=== PATIENT | male | born 1990 | race African-American/Black ===

== ENCOUNTER 2017-01-28 18:48 | Emergency (ER) | payer OTHER ==
[~2017-01-28] VITALS: Ht 172.7 cm; Wt 68.0 kg
[~2017-01-28 18:48] MED LIST: ALBUAER INH; ONDA4TAB46 PO
[2017-01-28 19:03] VITALS: TEMP 36.9; Ht 172.7 cm; Wt 68.0 kg
[2017-01-28] MEDS ORDERED: TRAM-10 PO (19:33)
[2017-01-28] MEDS ORDERED: VENL37.593 PO (19:33)
[2017-01-28] MEDS ORDERED: LXP10 PO (19:33)
[2017-01-28] MEDS ORDERED: MTR800 PO (19:33)
[2017-01-28] MEDS ORDERED: OXYC1TAB3 PO (19:55)
[2017-01-28] MEDS ORDERED: PENI-82 PO (19:55)
--- NOTE | 2017-01-28 19:56 | EMERGENCY ROOM VISIT NOTE ---
ED Visit Note First contact with patient: 19:18 CHIEF COMPLAINT: Toothache HISTORY OF PRESENT ILLNESS: This 26-year-old male patient presented to the emergency department ambulatory with a progressive toothache for past to weeks. The patient states that he has a long history of dental problems. He has been seeing a dentist in [place] and has had extractions of some of his left upper and right upper molars as well as one of the right lower molars. The patient states he has had right upper and lower jaw pain for the past few weeks. He is having difficulty chewing on the right side. He called his dentist and they were initially not able to see him until June, but had a cancellation and remained appointment for the of this month. He states the pain is giving him a migraine. He rates his discomfort a 9/10. He denies facial swelling, drainage from the teeth, difficulty swallowing/breathing, neck pain or fever. REVIEW OF SYSTEMS: A 6 system review of systems was completed with positives and pertinent negatives listed in the HPI. ALLERGIES: Acetaminophen, shrimp MEDICATIONS: See med list PMH: Asthma, migraine headaches SOCIAL HISTORY: The patient lives locally with a roommate. Nonsmoker, denies alcohol use. PHYSICAL EXAM: Vitals are noted on the nurse's note and reviewed by myself. Vital signs stable. Temperature 36.9C orally. GENERAL: This is a 26-year-old male, in no acute distress, nondiaphoretic, well-developed well-nourished. Mouth: There are multiple dental caries, but no obvious swelling of the gums or abscess of the teeth. The remainder of the pharynx and tonsils are without erythema, edema, or exudate. The airway is patent. There is no facial swelling , cervical or submandibular lymphadenopathy. The patient appears uncomfortable and in pain. The patient has overall poor dental hygiene. EARS: External auditory canals clear, tympanic membranes pearly ren without erythema or effusion bilaterally. ED COURSE: The patient was evaluated as above. He has had issues with dental infections in the past. The patient does have an upcoming appointment with his dentist. I prescribed him penicillin as well as a very short course of pain medication. Conservative measures were discussed and the patient was instructed to return here for any worsening of his current condition or new/ concerning symptoms. Patient was reviewed in the [place] prescription drug monitoring program; no red flags were identied. Medication reconciliation: I attest that I have personally reviewed the patient 's current medication list. Blood Pressure Screening: Patient was found to have a slightly elevated blood pressure due to circumstances. I do not believe that the patient requires hypertension monitoring. DIAGNOSIS: Odontalgia Problem List Medical Problems: (1) Migraines Status: Chronic Current/Historical Medications Scheduled Escitalopram Oxalate (Escitalopram Oxalate), 10 MG PO DAILY Penicillin V Potassium (Veetids), 500 MG PO QID Venlafaxine Hcl (Venlafaxine Extended Rel), 37.5 MG PO DAILY Scheduled PRN Ibuprofen (Ibuprofen), 800 MG PO TID PRN for Pain Oxycodone Ir (Roxicodone Ir), 1 TAB PO Q4H PRN for Pain Tramadol (Ultram), 50 MG PO UD PRN for Pain Allergies Coded Allergies: Acetaminophen (Verified Allergy, Intermediate, GI SYMPTOMS, 12/15/15) Shrimp (Verified Allergy, Intermediate, GI SYMPTOMS, 12/15/15) Vital Signs Date Time Temp Pulse Resp B/P (MAP) Pulse Ox O2 Delivery O2 Flow Rate FiO2 01/28/17 19:03 36.9 95 18 104/61 98 Room Air Departure Information Impression Primary Impression: Tooth pain with chewing Dispostion Home / Self-Care Condition GOOD Prescriptions Oxycodone Ir (Roxicodone Ir) 5 Mg Tab 1 TAB PO Q4H Y for Pain, #8 TAB For Initial Treatment Prov: Roxanen Gillespie PA-C 01/28/17 Penicillin V Potassium (Veetids) 500 Mg Tab 500 MG PO QID, #40 TAB Prov: Roxanne Gillespie PA-C 01/28/17 Referrals No Doctor, Assigned (PCP) Patient Instructions My [facility] Additional Instructions You have been treated in the Emergency Department for Dental Pain. You have been prescribed Oxy IR to be used for pain control. This is a narcotic medication. You cannot drive or consume alcohol while on this medicine. This medicine should only be used for pain that cannot be controlled with over-the- counter pain medicines. You were prescribed Pen VK to be taken 4 times daily as prescribed. This is an antibiotic. All antibiotics have the potential to cause diarrhea. Stop this medication and contact a medical provider if you were to develop any significant adverse side effects including: wheezing, shortness of breath, passing out, vomiting, or a diffuse rash. Always take antibiotics as directed and COMPLETE the ENTIRE course regardless of the improvement of your symptoms. For pain control, you can use the following [id number] medicines (if >12 yo): - Regular strength (325mg/tab) Tylenol (acetaminophen) 2 tabs every 4-6 hours as needed. Do not exceed 12 tablets in a 24 hour period. Avoid taking more than 4 grams (4000 mg) of Tylenol per day. This includes any other sources of acetaminophen you may take on a regular basis. - Regular strength (200 mg/tab) Advil (ibuprofen) 1-2 tabs every 4-6 hours as needed. Do not exceed a dose of 3200 mg per day. Refrain from smoking cigarettes or using chewing tobacco until you have been evaluated by your dentist. Keeping beverages lukewarm and consuming soft foods can decrease your pain. Warm compresses over the affected area may offer some relief. You MUST seek evaluation of your dental pain by a dentist following your visit to the Emergency Department. The Emergency Department is not capable of treating dental issues long-term. You should call your dentist as soon as possible to make an appointment for evaluation of your dental pain. Return to the emergency department if you develop the following symptoms despite treatment course outlined above: fever, intractable pain, increased redness, swelling, or purulent discharge.
[2017-01-28 20:13] VITALS: BP 115/77; PULSE 87; O2SAT 98
[2017-04-06] MEDS ORDERED: AMOX500C3 PO (16:09)
[2017-04-06] MEDS ORDERED: TRAM-10 PO (16:11)
[2017-04-06] MEDS ORDERED: VNTHFA/IN PO (19:04)
[2017-04-06] MEDS ORDERED: MOME200A PO (19:04)
== END 2017-01-28 20:13 | disposition home or self-care (01) ==
LOC: C.EDB 18:49 → C.EDD 20:13
DX: K08.89 Other specified disorders of teeth and supporting structures (principal); K02.9 Dental caries, unspecified; J45.909 Unspecified asthma, uncomplicated; Z79.899 Other long term (current) drug therapy

== ENCOUNTER 2017-02-17 18:11 | Emergency (ER) | payer OTHER ==
[~2017-02-17] VITALS: Ht 172.7 cm; Wt 69.2 kg
[~2017-02-17 18:11] MED LIST changes: -ALBUAER INH; +LXP10 PO; +MTR800 PO; -ONDA4TAB46 PO; +OXYC1TAB3 PO; +PENI-82 PO; +TRAM-10 PO; +VENL37.593 PO
[2017-02-17 18:17] VITALS: Ht 172.7 cm; Wt 69.2 kg
[2017-02-17] MEDS ORDERED: DiphenhydrAMINE HCL 50 MG/ML VIAL IM STA (19:07)
[2017-02-17] MEDS ORDERED: PROCHLORPERAZINE 5 MG/ML 2 ML VIAL IM STA (19:07)
[2017-02-17] MEDS ORDERED: PENI-82 PO (19:07)
[2017-02-17] MEDS ORDERED: KETOROLAC TROMETHAMINE 60 MG/2 ML VIAL IM STA (19:07)
--- NOTE | 2017-02-17 19:14 | EMERGENCY ROOM VISIT NOTE ---
History Report prepared by Noelle: Susanne Brown Under the Supervision of: Dr. Justus Iglesias M.D. First contact with patient: 18:49 Chief Complaint: HEADACHE Stated Complaint: SEVERE MIGRANE AND TOOTH PAIN History of Present Illness The patient is a 26 year old male who presents to the Emergency Room with complaints of a constant migraine. The patient states he was given pain medicine yesterday that helped relieve some of his symptoms but has since ran out of medication and his symptoms have returned. He also states he has previously been seen by a neurologist in [place] and has seen a paint maker with the [facility]. The patient also states that after calling his PCP multiple times his PCP "told him to come to ER". He is also currently on antidepressants and is experiencing tooth pain and light sensitivity. Source of History: patient Onset: Just prior to arrival Position: head Quality: other (throbbing) Timing: constant Note: additional symptoms: tooth pain and light sensitivity Review of Systems See HPI for pertinent positives & negatives. A total of 10 systems reviewed and were otherwise negative. Past Medical & Surgical Medical Problems: (1) Anxiety Disorder, Unspecified (2) Asthma, Unspecified (3) Chronic Migraine W/O Aura, Not Intractable, W/O Stat Migr (4) Major Depressive Disorder, Single Episode, Unspecified (5) Migraines (6) Tobacco Use Disorder Surgical Problems: (1) History of dental surgery Family History No pertinent family history stated. Social History Smoking Status: Former Smoker Alcohol Use: occasionally Drug Use: none Marital Status: single Occupation Status: [employer] student Current/Historical Medications Scheduled Mometasone Furoate-Formoterol (Dulera 200/5 Mcg), 2 PUFFS PO BID Penicillin V Potassium (Veetids), 500 MG PO QID Venlafaxine Hcl (Effexor Extended Rel), 75 MG PO QAM Scheduled PRN Albuterol Hfa (Ventolin Hfa), 2 PUFFS PO Q6H PRN for Shortness of Breath Oxycodone Ir (Roxicodone Ir), 1 TAB PO Q4H PRN for Pain Allergies Coded Allergies: Acetaminophen (Verified Allergy, Intermediate, GI SYMPTOMS, 02/17/17) Shrimp (Verified Allergy, Intermediate, GI SYMPTOMS, 02/17/17) Physical Exam Vital Signs Date Time Temp Pulse Resp B/P (MAP) Pulse Ox O2 Delivery O2 Flow Rate FiO2 02/17/17 19:33 36.6 77 18 131/97 99 02/17/17 18:17 36.6 85 18 148/103 99 Room Air Physical Exam GENERAL: Patient is a healthy-appearing well-nourished male, no evidence of meningitis or encephalitis on exam HEAD: Normocephalic atraumatic EYES: Ocular movements intact pupils equal and react to light OROPHARYNX mucous membranes are moist no exudates present no erythema or edema present NECK: Supple no nuchal rigidity CHEST: Good equal expansion LUNGS: Clear and equal to auscultation CARDIAC: Normal S1 and S2 ABDOMEN: Soft nontender no guarding BACK: No CVA tenderness EXTREMITIES: No pain upon palpation normal muscle strength in all groups no clubbing cyanosis or edema NEURO: Patient is following commands is answering questions appropriately. Alert and oriented x3 Cranial Nerves 2-12 grossly intact Medical Decision & Procedures Medications Administered Medications (Trade) Dose Ordered Sig/Jelani Route Start Time Stop Time Status Last Admin Dose Admin Ketorolac Tromethamine (Toradol Inj) 60 mg NOW STAT IM 02/17/17 19:07 02/17/17 19:10 DC 02/17/17 19:07 60 MG ED Course 185: Past medical records reviewed. The patient was evaluated in room D9. A complete history and physical examination was performed. 190: Benadryl Inj 25 mg IM, Compazine Inj 10 mg IM, Toradol Inj 60 mg IM. Medical Decision This is a 26-year-old male who asked to see physician after seeing the PA. The patient has had multiple narcotic prescriptions prescribed to him therefore will not emergency department including 10 of oxycodone yesterday. He was given Toradol Compazine and Benadryl. I see no evidence of infection or abscess at his tooth he has no evidence of meningitis encephalitis on examination. He is given Toradol Compazine and Benadryl here in the emergency department. I do not feel comfortable prescribing narcotics for headaches and expresses to the patient. The patient will follow-up with dentistry as well as neurology. Impression Primary Impression: Pain, dental Scribe Attestation The scribe's documentation has been prepared under my direction and personally reviewed by me in its entirety. I confirm that the note above accurately reflects all work, treatment, procedures, and medical decision making performed by me. Departure Information Dispostion Home / Self-Care Prescriptions Penicillin V Potassium (Veetids) 500 Mg Tab 500 MG PO QID, #40 TAB Prov: Lazaro Galarza PA 02/17/17 Referrals Eddie Baker III, M.D. (PCP) Patient Instructions My [facility]
[2017-02-17 19:33] VITALS: BP 131/97; PULSE 77; TEMP 36.6; O2SAT 99
--- NOTE | 2017-02-17 19:39 | EMERGENCY ROOM VISIT NOTE ---
History First contact with patient: 18:22 Chief Complaint: HEADACHE Stated Complaint: SEVERE MIGRANE AND TOOTH PAIN History of Present Illness The patient is a 26 year old male who presents to the Emergency Room with complaints of right-sided dental pain, migraine and difficulty sleeping. The patient reports saying long-standing history of chronic migraines. He reports that he sees a [facility] neurologist for his migraines, and was referred to the [facility] where they recommended Botox injections. The patient reports that he would require multiple injections, and did not feel that Botox was the appropriate treatment for him. He was then referred back to his family doctor, who told the patient that if he has any migraine, he should come to the emergency department for further treatment. The patient also reports a history of chronic dental pain, and has had multiple extractions in the past. The patient reports that he had an appointment scheduled last month to see a dentist in [place], however he did not have a ride to his appointment, and was rescheduled for June. The patient reports that he cannot wait that long, and is having worsening dental pain. He denies any foul taste, drainage or difficulty swallowing. He has not noticed any facial swelling. The patient reports that he is under a lot of stress at this time, and has tried several different medications prescribed by his family doctor. He is most concerned now for his migraines and dental pain, rating his discomfort a 9 out of 10. Review of Systems 10 system review was performed and was negative except for pertinent positives and negatives as indicated in history of present illness Past Medical/Surgical History Medical Problems: (1) Anxiety Disorder, Unspecified (2) Asthma, Unspecified (3) Chronic Migraine W/O Aura, Not Intractable, W/O Stat Migr (4) Major Depressive Disorder, Single Episode, Unspecified (5) Migraines (6) Tobacco Use Disorder Surgical Problems: (1) History of dental surgery Family History FH: cancer FH: diabetes mellitus FH: heart disease FH: seizures Social History Smoking Status: Former Smoker Alcohol Use: occasionally Drug Use: none Marital Status: single Occupation Status: [employer] student Current/Historical Medications Scheduled Mometasone Furoate-Formoterol (Dulera 200/5 Mcg), 2 PUFFS PO BID Penicillin V Potassium (Veetids), 500 MG PO QID Venlafaxine Hcl (Effexor Extended Rel), 75 MG PO QAM Scheduled PRN Albuterol Hfa (Ventolin Hfa), 2 PUFFS PO Q6H PRN for Shortness of Breath Oxycodone Ir (Roxicodone Ir), 1 TAB PO Q4H PRN for Pain Physical Exam Vital Signs Date Time Temp Pulse Resp B/P (MAP) Pulse Ox O2 Delivery O2 Flow Rate FiO2 02/17/17 18:17 36.6 85 18 148/103 99 Room Air Physical Exam CONSTITUTIONAL: Healthy and well nourished. Alert and oriented X 3 with flat affect. HEENT: Normocephalic, atraumatic. Pupils equal, round and reactive. No facial edema noted. Patient is photophobic, precluding funduscopic exam. OROPHARYNX: Patient has poor dentition. There is no significant gingival erythema, fluctuance or pointing. No evidence for Rich's angina or retropharyngeal abscess. NECK: Full active range of motion without discomfort. No JVD, carotid bruits or nuchal rigidity. RESPIRATORY: Clear to auscultation bilaterally with no wheezing, crackles, rhonchi or stridor. CARDIOVASCULAR: Regular rate and rhythm with no murmurs, rubs or gallops. INTEGUMENTARY: No rash or other significant dermatologic conditions noted. NEUROLOGIC: Cranial nerves II-XII grossly intact. No focal neurologic deficits noted. No ataxia with ambulation. Negative pronator drift. Medical Decision & Procedures Medications Administered Medications (Trade) Dose Ordered Sig/Jelani Route Start Time Stop Time Status Last Admin Dose Admin Ketorolac Tromethamine (Toradol Inj) 60 mg NOW STAT IM 02/17/17 19:07 02/17/17 19:10 DC 02/17/17 19:07 60 MG ED Course Patient history and physical exam were performed. Nurse's notes were reviewed. Vital signs were reviewed and were normal. Before evaluating the patient, I did review his notes from the pain clinic, showing that the patient did refuse her tox injections. He also requested an opioid prescription, and both Cecily Gonzalez PA-C and Dr. Mares reported that they would not provide any opioid prescriptions. Review of the [place] Prescription Drug Monitoring Program also shows that the patient went when urgent care yesterday and received a prescription for [address] Rodríguez. The patient reports that he used up all of his medications without any relief, and is here for stopping stronger for his pain. I kindly explained to the patient that the emergency department does not provide chronic pain management. I would be happy to help him with a prescription antibiotic for his dental pain, but do not feel comfortable providing him prescription opioids given his opioid prescription history. It is noted that he has received 7 prescriptions from 5 different providers, filled at 6 different pharmacies over the past year. I did offer him a prescription for Fioricet for his migraines, but indicated that I would not provide any opioids. At this point, the patient became confrontational and wanted to speak with a physician. My attending physician, Dr. Iglesias, also evaluated the patient and recommended IM Toradol, Compazine and Benadryl, and no prescription opioids. The patient refused his IM Compazine and Benadryl, and was administered Toradol 60 mg IM. The patient was provided contact information for Dr. Fonseca who accepts medical assistance insurance. The patient was also provided a prescription for Pen-Vee K 500 mg 4 times a day 10 days. The patient was unhappy about not being prescribed opioids, and rated his pain a 7 out of 10 at the time of discharge. Medical Decision [place] Drug Monitoring Program Search Results: patient reviewed within database, see additional documentation Blood Pressure Screening Patient's blood pressure: Normal blood pressure Impression Primary Impression: Chronic migraine Additional Impression: Pain, dental Departure Information Dispostion Home / Self-Care Prescriptions Penicillin V Potassium (Veetids) 500 Mg Tab 500 MG PO QID, #40 TAB Prov: Lazaro Galarza PA 02/17/17 Referrals Eddie Baker III, M.D. (PCP) Forms HOME CARE DOCUMENTATION FORM, IMPORTANT VISIT INFORMATION Patient Instructions My [facility] Additional Instructions Complete Pen-Vee K antibiotics as prescribed. Follow-up with Dr. Fonseca, dentist, for further dental management. Ibuprofen 800 mg every 8 hours for additional headache and dental pain relief. You must follow-up with your neurologist, pain clinic or family doctor to discuss ongoing migraine management. The Emergency Department does not provide chronic pain management or dental services. You may try calling the [facility], another local pain management clinic for evaluation. Problem Qualifiers
[2017-04-06] MEDS ORDERED: AMOX500C3 PO (16:09)
[2017-04-06] MEDS ORDERED: TRAM-10 PO (16:11)
[2017-04-06] MEDS ORDERED: VNTHFA/IN PO (19:04)
[2017-04-06] MEDS ORDERED: MOME200A PO (19:04)
== END 2017-02-17 19:34 | disposition home or self-care (01) ==
LOC: C.EDB 18:13 → C.EDD 19:34
DX: G43.909 Migraine, unspecified, not intractable, without status migrainosus (principal); K08.89 Other specified disorders of teeth and supporting structures; F41.9 Anxiety disorder, unspecified; J45.909 Unspecified asthma, uncomplicated; F32.9 Major depressive disorder, single episode, unspecified; Z83.3 Family history of diabetes mellitus; Z82.0 Family history of epilepsy and other diseases of the nervous system; Z87.891 Personal history of nicotine dependence

== ENCOUNTER 2017-04-02 15:13 | Emergency (ER) | payer OTHER ==
[~2017-04-02] VITALS: Ht 172.7 cm; Wt 69.3 kg
[~2017-04-02 15:13] MED LIST changes: -LXP10 PO; -MTR800 PO; -TRAM-10 PO; -VENL37.593 PO
[2017-04-02 15:17] VITALS: TEMP 36.9; Ht 172.7 cm; Wt 69.3 kg
--- NOTE | 2017-04-02 16:03 | EMERGENCY ROOM VISIT NOTE ---
ED Visit Note First contact with patient: 15:41 CHIEF COMPLAINT: Toothache HISTORY OF PRESENT ILLNESS: This 26-year-old male patient presented to the emergency department with a progressive toothache for past month. The patient believes it is coming from left upper molar. The pain is now steady and severe and radiates to the face. The patient had a dentist appointment earlier today. He was referred to an oral surgeon. He was told to take ibuprofen, which he has been taking with minimal relief. He just finished a course of antibiotics last week REVIEW OF SYSTEMS: A 6 system review of systems was completed with positives and pertinent negatives listed in the HPI. ALLERGIES: Tylenol, shrimp MEDICATIONS: Reviewed PMH: Chronic migraines SOCIAL HISTORY: Smokes cigarettes, denies EtOH or illicit drug use. The patient is employed. PHYSICAL EXAM: Vitals are noted on the nurse's note and reviewed by myself. Vital signs stable. Temperature 36.9C orally. GENERAL: 26-year-old male, in no acute distress, nondiaphoretic, well-developed well-nourished. Mouth: The left upper molar is carious. No surrounding gum swelling or erythema noted. No signs of an abscess. The remainder of the pharynx and tonsils are without erythema, edema, or exudate. The airway is patent. There is no facial swelling , cervical or submandibular lymphadenopathy. The patient appears uncomfortable and in pain. The patient has overall fair dental hygiene. EARS: External auditory canals clear, tympanic membranes pearly ren without erythema or effusion bilaterally. ED COURSE: The patient was seen and examined. Discharge instructions were reviewed, and he was discharged in good condition DIAGNOSIS: Odontalgia DISCHARGE INSTRUCTIONS & TREATMENT: Please follow-up with the oral surgeon as soon as possible. I would recommend trying to contact your dentist in [place] to see if they can get you in sooner. Please try applying Orajel to the affected tooth. This may be purchased over- the-counter. Continue ibuprofen as prescribed Oxycodone Immediate Release (OxyIR) 5mg: Take 1-2 pills every four hours for pain. Avoid alcohol, operating machinery or dangerous equipment, working on ladders or roofs, DRIVING, or situations where being under the influence may be dangerous. It is recommended to use an [id number] stool softener such as Colace, 100mg twice daily while taking this medication to avoid constipation. Return to the emergency department if you have any of the following symptoms: -Fever of 103F or greater -Facial swelling -Difficulty breathing or swallowing This chart was completed in part utilizing [employer] Speech Voice Recognition software. Attempts were made to minimize the grammatical errors, random word insertions, pronoun errors and incomplete sentences. Any formal questions or concerns about the content, text or information contained within the body of this dictation should be directly addressed to the provider for clarification.
[2017-04-02] MEDS ORDERED: OXYC1TAB3 PO (16:05)
[2017-04-02 16:16] VITALS: BP 120/66; PULSE 86; O2SAT 96
[2017-04-02] MEDS ORDERED: EFFSR75 PO (19:04)
[2017-04-06] MEDS ORDERED: AMOX500C3 PO (16:09)
[2017-04-06] MEDS ORDERED: TRAM-10 PO (16:11)
[2017-04-06] MEDS ORDERED: VNTHFA/IN PO (19:04)
[2017-04-06] MEDS ORDERED: MOME200A PO (19:04)
== END 2017-04-02 16:18 | disposition home or self-care (01) ==
LOC: C.EDB 15:14 → C.EDD 16:18
DX: K08.89 Other specified disorders of teeth and supporting structures (principal); F17.210 Nicotine dependence, cigarettes, uncomplicated

== ENCOUNTER 2017-04-06 19:37 | Emergency (ER) | payer OTHER ==
[~2017-04-06] VITALS: Ht 172.7 cm; Wt 68.4 kg
[~2017-04-06 19:37] MED LIST changes: +AMOX500C3 PO; +EFFSR75 PO; +MOME200A PO; -PENI-82 PO; +TRAM-10 PO; +VNTHFA/IN PO
[2017-04-06 19:46] VITALS: TEMP 37.1; Ht 172.7 cm; Wt 68.4 kg
[2017-04-06] MEDS ORDERED: IBUP600T44 PO (20:43)
[2017-04-06] MEDS ORDERED: OXYCODONE IR HOME PACK PO STA (21:01)
[2017-04-06] MEDS ORDERED: OXYC1TAB3 PO (21:02)
--- NOTE | 2017-04-06 21:03 | EMERGENCY ROOM VISIT NOTE ---
ED Visit Note First contact with patient: 20:40 CHIEF COMPLAINT: "Extreme tooth pain both sides more left". HISTORY OF PRESENT ILLNESS: This 26-year-old male patient presented to the emergency department via private vehicle with a progressive toothache for past weeks. The patient believes it is coming from left top and bottom teeth. The pain is now steady and severe and radiates to the face. The patient has a dentist appointment set up April 15 with an oral surgeon, but comes to us today sent by his dentist that he saw around 6 PM this evening. They rate their pain a 9/10 and the ibuprofen and Tylenol they have been taking has not relieved the pain. He notes that he has been taking pain medication with some relief but no longer has these. He notes he has used them. Denies facial swelling or fever. The patient denies any discharge from the mouth. REVIEW OF SYSTEMS: A 6 system review of systems was completed with positives and pertinent negatives listed in the HPI. ALLERGIES: Acetaminophen, shrimp. MEDICATIONS: As noted below. PMH: Dental pain. SOCIAL HISTORY: Patient lives locally. PHYSICAL EXAM: Vitals are noted on the nurse's note and reviewed by myself. Vital signs stable. Temperature 37.1C orally. GENERAL: 26-year-old male, in no acute distress, nondiaphoretic, well-developed well-nourished. Mouth: The top right and bottom right tooth in poor repair and the gum is swollen and tender around it, without any discharge or signs of an abscess. The remainder of the pharynx and tonsils are without erythema, edema, or exudate. The airway is patent. There is no facial swelling, cervical or submandibular lymphadenopathy. The patient appears uncomfortable and in pain. The patient has overall fair dental hygiene. EARS: External auditory canals clear, tympanic membranes pearly ren without erythema or effusion bilaterally. ED COURSE: Patient was seen and evaluated as above. He has been here numerous times for dental pain. He furnishes paperwork regarding referral that he has to an oral maxillofacial surgeon April 15 in [place]. He notes that he has been told here on the past and we are unable to manage his dental pain, which I reiterated. He notes that he is not sure ago, because his family doctor notes that her unable to write for extended prescriptions, and his dentist that he saw today said the same thing, that their policy is only to prescribe antibiotics and pain meds. He notes that the dentist then sent him here. He does finished documentation of such. [employer] was checked. The patient has been very honest with me about his previous prescription, as well as being to see the dentist. I do believe that he is in pain, therefore we'll provide him a short course of pain medication, but reminded him that recurrent visits to the emergency Department for dental pain is not appropriate. At this time he appears stable for outpatient management, will be given a home pack as well as a short prescription. His pharmacy is closed at this time. He is to not drive or operate machinery with this in his system. He was educated upon management, educated upon worrisome symptoms in which to return, had questions answered prior to discharge, and was discharged home in good condition. In the evaluation and treatment of this patient, the following differential diagnoses were considered: Periapical Abscess, Osteonecrosis of the Jaw, Dental Fracture, Dental Caries, Rich's Angina, Vincent's Angina, Facial Cellulitis. In the treatment of this patient controlled medication was utilized and therefore the [facility], Prescription Drug Monitoring Program website was utilized to look up this patient. No concerns were identified that would prohibit or alter my treatment decision.. Problem List Medical Problems: (1) Migraines Status: Chronic Current/Historical Medications Scheduled Amoxicillin (Amoxil), 500 MG PO TID Mometasone Furoate-Formoterol (Dulera 200/5 Mcg), 2 PUFFS PO BID Venlafaxine Hcl (Effexor Extended Rel), 75 MG PO QAM Scheduled PRN Albuterol Hfa (Ventolin Hfa), 2 PUFFS PO Q6H PRN for Shortness of Breath Ibuprofen (Motrin), 600 MG PO TID PRN for Pain Oxycodone Ir (Roxicodone Ir), 1-2 TAB PO Q4H PRN for Pain Oxycodone Ir (Roxicodone Ir), 1-2 TAB PO Q4H PRN for Pain Tramadol (Ultram), 50 MG PO PRN UD PRN for Pain Allergies Coded Allergies: Acetaminophen (Verified Allergy, Intermediate, GI SYMPTOMS, 02/17/17) Shrimp (Verified Allergy, Intermediate, GI SYMPTOMS, 02/17/17) Vital Signs Date Time Temp Pulse Resp B/P (MAP) Pulse Ox O2 Delivery O2 Flow Rate FiO2 04/06/17 21:19 83 20 147/107 100 04/06/17 19:46 37.1 105 18 150/90 99 Room Air Medications Administered Medications (Trade) Dose Ordered Sig/Jelani Route Start Time Stop Time Status Last Admin Dose Admin Oxycodone HCl (Roxicodone Immediate Rel 5MG Home Pack) 1 homepack UD STAT PO 04/06/17 21:01 04/06/17 21:02 DC 04/06/17 21:18 1 HOMEPACK Departure Information Impression Primary Impression: Odontalgia Dispostion Home / Self-Care Condition GOOD Prescriptions Oxycodone Ir (Roxicodone Ir) 5 Mg Tab 1-2 TAB PO Q4H Y for Pain, #18 TAB For Initial Treatment Prov: Jameson Lawson PA-C 04/06/17 Referrals Eddie Baker III, M.D. (PCP) Patient Instructions My [facility] Additional Instructions You have been treated in the Emergency Department for Dental Pain. You have received pain medicine in the emergency department which impairs your ability to operate a vehicle. It is illegal for you to drive after receiving these medicines. You have been prescribed Oxy IR to be used for pain control. This is a narcotic medication. You cannot drive or consume alcohol while on this medicine. This medicine should only be used for pain that cannot be controlled with over-the- counter pain medicines. The care will take this only as you absolutely need, as this can interact with your other medications. For pain control, you can use the following unwh-mle-bldloqj medicines (if >12 yo): - Regular strength (325mg/tab) Tylenol (acetaminophen) 2 tabs every 4-6 hours as needed. Do not exceed 12 tablets in a 24 hour period. Avoid taking more than 3 grams (3000 mg) of Tylenol per day. This includes any other sources of acetaminophen you may take on a regular basis. - Regular strength (200 mg/tab) Advil (ibuprofen) 1-2 tabs every 4-6 hours as needed. Do not exceed a dose of 3200 mg per day. Refrain from smoking cigarettes or using chewing tobacco until you have been evaluated by your dentist. Keeping beverages lukewarm and consuming soft foods can decrease your pain. Warm compresses over the affected area may offer some relief. You MUST seek evaluation of your dental pain by a dentist following your visit to the Emergency Department. The Emergency Department is not capable of treating dental issues long-term. You should call your dentist as soon as possible to make an appointment for evaluation of your dental pain. Return to the emergency department if you develop the following symptoms despite treatment course outlined above: fever, intractable pain, increased redness, swelling, or purulent discharge. Please return with any new/concerning symptoms.
[2017-04-06 21:19] VITALS: BP 147/107; PULSE 83; O2SAT 100
== END 2017-04-06 21:20 | disposition home or self-care (01) ==
LOC: C.EDB 19:38 → C.EDD 21:20
DX: K08.89 Other specified disorders of teeth and supporting structures (principal); G43.909 Migraine, unspecified, not intractable, without status migrainosus

== ENCOUNTER 2017-04-12 16:18 | Emergency (ER) | payer OTHER ==
[~2017-04-12] VITALS: Ht 172.7 cm; Wt 69.8 kg
[~2017-04-12 16:18] MED LIST changes: +IBUP600T44 PO
[2017-04-12 16:26] VITALS: TEMP 36.4; Ht 172.7 cm; Wt 69.8 kg
[2017-04-12] MEDS ORDERED: ALPR-411 PO (16:43)
[2017-04-12] MEDS ORDERED: TRAZ50TA35 PO (16:43)
[2017-04-12] MEDS ORDERED: CYM30 PO (16:43)
[2017-04-12] MEDS ORDERED: AMOX500C3 PO (17:12)
[2017-04-12] MEDS ORDERED: OXYC1TAB3 PO (17:12)
--- NOTE | 2017-04-12 17:14 | EMERGENCY ROOM VISIT NOTE ---
ED Visit Note First contact with patient: 16:39 CHIEF COMPLAINT: Ongoing dental pain times several months HISTORY OF PRESENT ILLNESS: Patient is a 26-year-old -[place] male who returns to the emergency department for the third visit in 10 days for evaluation of dental pain. He reports that he has been seen by [facility] and has been referred to Drs. Reardon/Carrillo in [place] for extraction of teeth #13 and 19. He has paperwork from the [facility] documenting the referral. His appointment with the oral surgeon is April 15. Patient recently finished a course of amoxicillin. His dentist has a strict no narcotic prescription policy. He has called his PCP, Dr. Baker and they are also unable/unwilling to provide him with pain management. He has received 2 oxycodone prescriptions in the last week and a half from the emergency department. He is here as he is out of pain medication, and is requesting additional pain medication until he can see the oral surgeon in a few days. He is using pkji-nxb-lmzvzhg medications including Aleve and Tylenol. He denies any drainage or discharge. He states that his dental pain is causing a migraine. He rates his pain a 10/10. REVIEW OF SYSTEMS: Review of systems as per HPI. All other systems reviewed were negative. At least 6 systems reviewed. PMH: Electronic medical records are reviewed and summarized as above/below. See Problem List. SOCIAL HISTORY: Patient lives at home. Smoker. PHYSICAL EXAM: Vital Signs: Reviewed Nurse's notes. CONSTITUTIONAL: Patient is a well-appearing 26-year-old -[place] male who is awake and alert and in no acute distress. Vital signs are stable. EARS: Tympanic membranes intact, not inflamed, have normal contour. External canals clear. MOUTH: Overall the patient has fair dentition. He is status post multiple extractions, he does have some fillings in place. There is slight swelling along the gumline although no focal abscess. Mucous membranes moist, no lesions , tongue and gums appear normal. THROAT: No pharyngeal injection, exudates, or tonsillar hypertrophy. Airway is patent. No trismus noted. FACE: No facial swelling is appreciated. No cellulitic changes. NECK: No lymphadenopathy. ED course: The patient was seen and examined as above. His old records are reviewed. Patient was reviewed in the [facility] Prescription Drug Monitoring Program. Patient is forthcoming with regards to the prescriptions that he has obtained, including from other facilities. He has had 5 oxycodone prescriptions since the beginning of February, small supplies , since he has begun the process of his extensive dental work. The patient has been previously told and he was reminded that the emergency department cannot provide him with narcotics for his chronic dental pain related complaints. He expressed understanding of this. As he has an appointment this week, I have provided him with THE LAST OxyIR prescription. He was advised that he would not get any further narcotics from the emergency department regarding his dental pain. He was encouraged to follow-up with his oral surgeon as he has scheduled. The patient does not have any evidence for infection at this time, no evidence for facial cellulitis or Rich's angina. No evidence for airway compromise. Patient was reviewed in the [facility] Prescription Drug Monitoring Program, and there were no red flags noted. Medication reconciliation: I attest that I have personally reviewed the patient' s current medication list. Blood pressure screening: Patient was found to have a slightly elevated blood pressure due to circumstances. I do not believe that the patient requires hypertension monitoring. Problem List Medical Problems: (1) Migraines Status: Chronic Current/Historical Medications Scheduled Amoxicillin (Amoxil), 500 MG PO TID Duloxetine HCl (Duloxetine HCl), 60 MG PO DAILY Scheduled PRN Albuterol Hfa (Ventolin Hfa), 2 PUFFS PO Q6H PRN for Shortness of Breath Alprazolam (Alprazolam), 0.5 MG PO TID PRN for Anxiety Ibuprofen (Motrin), 600 MG PO TID PRN for Pain Oxycodone Ir (Roxicodone Ir), 1-2 TAB PO Q4H PRN for Pain Tramadol (Ultram), 50 MG PO PRN UD PRN for Pain Trazodone Hcl (Trazodone), 50 MG PO HS PRN for Sleep Allergies Coded Allergies: Acetaminophen (Verified Allergy, Intermediate, GI SYMPTOMS, 04/12/17) Shrimp (Verified Allergy, Intermediate, GI SYMPTOMS, 04/12/17) Vital Signs Date Time Temp Pulse Resp B/P (MAP) Pulse Ox O2 Delivery O2 Flow Rate FiO2 04/12/17 17:26 94 18 137/93 100 04/12/17 16:26 36.4 99 18 152/100 100 Room Air Departure Information Impression Primary Impression: Pain, dental Prescriptions Amoxicillin (AMOXIL) 500 Mg Cap 500 MG PO TID, #30 CAP Prov: Lyndsay Dinh PA 04/12/17 Oxycodone Ir (Roxicodone Ir) 5 Mg Tab 1-2 TAB PO Q4H Y for Pain, #18 TAB For Initial Treatment Prov: Lyndsay Dinh PA 04/12/17 Referrals Eddie Baker III, M.D. (PCP) Patient Instructions My [facility] Additional Instructions Oxy IR as prescribed. Avoid alcohol, operating machinery or dangerous equipment , working on ladders or roofs, DRIVING, making important decisions, or situations where being under the influence may be dangerous. It is recommended to use an xdae-zcb-stizaoq stool softener such as Colace, 100mg twice daily while taking this medication to avoid constipation. Ibuprofen(Motrin, Advil) may be used for fever or pain. Use 600mg every six hours as needed. Take with food. Avoid using more than 2400mg in a 24 hour period. Do not use 2400mg per day for more than three consecutive days without physician direction. Prolonged inappropriate use can lead to stomach upset or ulcers. This is available over the counter and typically comes in 200mg tablets. (AND/OR) Acetaminophen(Tylenol) may be used for fever or pain. Use 1000mg every eight hours as needed. Avoid using more than 3000mg in a 24 hour period. This is available over the counter. Take Amoxil if you find you are developing signs of infection. Follow up with the oral surgeon as scheduled. The Emergency Department will no longer provide you with narcotic prescriptions for your dental pain.
[2017-04-12 17:26] VITALS: BP 137/93; PULSE 94; O2SAT 100
== END 2017-04-12 17:28 | disposition home or self-care (01) ==
LOC: C.EDB 16:19 → C.EDD 17:28
DX: K08.89 Other specified disorders of teeth and supporting structures (principal); F17.200 Nicotine dependence, unspecified, uncomplicated; Z88.6 Allergy status to analgesic agent; Z91.018 Allergy to other foods

== ENCOUNTER 2017-04-23 16:55 | Emergency (ER) | payer OTHER ==
[~2017-04-23] VITALS: Ht 172.7 cm; Wt 68.8 kg
[~2017-04-23 16:55] MED LIST changes: +ALPR-411 PO; +CYM30 PO; -EFFSR75 PO; -MOME200A PO; +TRAZ50TA35 PO
[2017-04-23 17:07] VITALS: TEMP 37; Ht 172.7 cm; Wt 68.8 kg
--- NOTE | 2017-04-23 17:46 | EMERGENCY ROOM VISIT NOTE ---
ED Visit Note First contact with patient: 17:12 CHIEF COMPLAINT: "Dental Pain" HISTORY OF PRESENT ILLNESS: This 26 year old male appearing his stated patient presented to the emergency department via private vehicle with a progressive toothache for past few weeks.. The patient believes it is coming from all of his teeth. The pain is now steady and severe and radiates to the face. The patient has a dentist appointment set up for the , and notes that although he had an appointment on the he missed the appointment which was excellent the third. They rate their pain a 8/10 and the ibuprofen they have been taking has not relieved the pain. Denies facial swelling or fever. The patient denies any discharge from the mouth. REVIEW OF SYSTEMS: A 6 system review of systems was completed with positives and pertinent negatives listed in the HPI. ALLERGIES: Acetaminophen, shrimp MEDICATIONS: As noted below PMH: Dental pain SOCIAL HISTORY: Patient lives locally PHYSICAL EXAM: Vitals are noted on the nurse's note and reviewed by myself. Vital signs stable. Temperature 37C orally. GENERAL: 26-year-old male, in no acute distress, nondiaphoretic, well-developed well-nourished. Mouth: The dentition is in good repair. The airway is patent. There is no facial swelling , cervical or submandibular lymphadenopathy. The patient appears uncomfortable and in pain. The patient has overall fair dental hygiene. EARS: External auditory canals clear, tympanic membranes pearly ren without erythema or effusion bilaterally. ED COURSE: Patient was seen and evaluated as above. [facility] many drug monitoring system was reviewed as well as his previous visits. I have seen him here on previous visits for the same complaint, as well as other colleagues. I' m concerned because he continues to return for narcotic medication. I informed him that a colleague, on a previous visit indicated that that was the last narcotic prescription for his dental pain. He has been seen here over 10 times in the past 2-1/2 years for dental pain. When I asked him about the oral surgeon appointment he had for April 15, he indicated that he called that day to see if he still had that appointment, and indicated he missed that day as it was the third instead. I do find this on, but he does note he has an appointment on the . He states his local dentist here did some manipulation in the mouth today but he states they have a no narcotic no antibiotic policy. At this time I offered him every modality possible other than narcotic medications, even had me as the attending physician if there was any exclusions or special circumstance changes we could make for him. I spoke with Dr. Chaney, and the decision was still no. He at this time appears stable for outpatient management. No evidence of meningitis, encephalitis, fever or other emergent process. He was educated upon management, educated upon worrisome symptoms which to return, had questions answered prior to discharge, and was discharged home in good condition. In the evaluation and treatment of this patient, the following differential diagnoses were considered: Periapical Abscess, Osteonecrosis of the Jaw, Dental Fracture, Dental Caries, Rich's Angina, Vincent's Angina, Facial Cellulitis. Problem List Medical Problems: (1) Migraines Status: Chronic Current/Historical Medications Scheduled Amoxicillin (Amoxil), 500 MG PO TID Duloxetine HCl (Duloxetine HCl), 60 MG PO DAILY Scheduled PRN Albuterol Hfa (Ventolin Hfa), 2 PUFFS PO Q6H PRN for Shortness of Breath Alprazolam (Alprazolam), 0.5 MG PO TID PRN for Anxiety Ibuprofen (Motrin), 600 MG PO TID PRN for Pain Oxycodone Ir (Roxicodone Ir), 1-2 TAB PO Q4H PRN for Pain Tramadol (Ultram), 50 MG PO PRN UD PRN for Pain Trazodone Hcl (Trazodone), 50 MG PO HS PRN for Sleep Allergies Coded Allergies: Acetaminophen (Verified Allergy, Intermediate, GI SYMPTOMS, 04/12/17) Shrimp (Verified Allergy, Intermediate, GI SYMPTOMS, 04/12/17) Vital Signs Date Time Temp Pulse Resp B/P (MAP) Pulse Ox O2 Delivery O2 Flow Rate FiO2 04/23/17 18:08 72 20 125/89 99 04/23/17 17:07 37.0 92 20 133/105 99 Room Air Departure Information Impression Primary Impression: Odontalgia Dispostion Home / Self-Care Condition GOOD Referrals No Doctor, Assigned (PCP) Patient Instructions My [facility] Additional Instructions You have been treated in the Emergency Department for Dental Pain. For pain control, you can use the following ynvr-sjv-avgsuxv medicine: - Regular strength (200 mg/tab) Advil (ibuprofen) 1-2 tabs every 4-6 hours as needed. Do not exceed a dose of 3200 mg per day. Refrain from smoking cigarettes or using chewing tobacco until you have been evaluated by your dentist. Keeping beverages lukewarm and consuming soft foods can decrease your pain. Warm compresses over the affected area may offer some relief. You MUST seek evaluation of your dental pain by a dentist following your visit to the Emergency Department. The Emergency Department is not capable of treating dental issues long-term. You should call your dentist as soon as possible to make an appointment for evaluation of your dental pain. Return to the emergency department if you develop the following symptoms despite treatment course outlined above: fever, intractable pain, increased redness, swelling, or purulent discharge.
[2017-04-23 18:08] VITALS: BP 125/89; PULSE 72; O2SAT 99
== END 2017-04-23 18:01 | disposition home or self-care (01) ==
LOC: C.EDB 16:56 → C.EDD 18:01
DX: K08.89 Other specified disorders of teeth and supporting structures (principal)

== ENCOUNTER 2017-06-19 17:51 | Emergency (ER) | payer OTHER ==
[~2017-06-19] VITALS: Ht 172.7 cm; Wt 69.8 kg
[~2017-06-19 17:51] MED LIST changes: -AMOX500C3 PO; -OXYC1TAB3 PO
[2017-06-19 18:08] VITALS: TEMP 36.9; Ht 172.7 cm; Wt 69.8 kg
--- NOTE | 2017-06-19 19:14 | EMERGENCY ROOM VISIT NOTE ---
ED Visit Note First contact with patient: 18:18 CHIEF COMPLAINT: "Severe tooth pain". HISTORY OF PRESENT ILLNESS: This 27-year-old male patient presented to the emergency department via private vehicle with a progressive toothache for past 3 -4 days of the superior posterior molars on the right side. The pain is now steady and severe and radiates to the face. The patient has a dentist appointment set up July [address] Nato DDS. They rate their pain a 8/ 10 and the ibuprofen, tramadol, naproxen they have been taking has not relieved the pain. Denies facial swelling or fever. The patient denies any discharge from the mouth. REVIEW OF SYSTEMS: A 6 system review of systems was completed with positives and pertinent negatives listed in the HPI. ALLERGIES: Acetaminophen and shrimp MEDICATIONS: As noted below PMH: Dental pain SOCIAL HISTORY: Pt. lives locally PHYSICAL EXAM: Vitals are noted on the nurse's note and reviewed by myself. Vital signs stable. Temperature 36.9C orally. GENERAL: 27 year old male, in no acute distress, nondiaphoretic, well-developed well-nourished. Mouth: The dentition is in goo repair, without any discharge or signs of an abscess. The remainder of the pharynx and tonsils are without erythema, edema, or exudate. The airway is patent. There is no facial swelling, cervical or submandibular lymphadenopathy. The patient appears uncomfortable and in pain. The patient has overall fair dental hygiene. EARS: External auditory canals clear, tympanic membranes pearly ren without erythema or effusion bilaterally. ED COURSE: Patient was seen and evaluated as above. He presents to us today with dental pain. I am fully aware of the patient and previous visits. He has been here 13 times in the past year and a half for dental pain. He requested I speak with his dentist/on-call dentist. At 6:46 PM I did speak with Dr. Jaja Kelly DMD. We discussed the concern with the patient's drug-seeking behavior, and they indicated they do not feel comfortable prescribing narcotics until they would see the patient. They're also concerned about potential drug- seeking behavior. She recommended potential dental block, and then follow up with their office. He is to call Thursday morning to schedule follow-up. This does appear reasonable. The patient was offered this as well as Toradol, and essentially every other pain alleviating option other than narcotics. He stated to me in regard to Toradol, and ibuprofen "not going to touch the pain". The patient does talk in length, and does not appear to be experiencing much pain. I informed him that's a decision was made given the frequent visits to the emergency Department for dental pain requesting narcotics that he has on the no narcotic list. After thorough discussion with him, he requested to be discharged. He was respectful with this, and was discharged home. He is to follow with dentistry. In the evaluation and treatment of this patient, the following differential diagnoses were considered: Periapical Abscess, Osteonecrosis of the Jaw, Dental Fracture, Dental Caries, Rich's Angina, Vincent's Angina, Facial Cellulitis. Problem List Medical Problems: (1) Migraines Status: Chronic Current/Historical Medications Scheduled Duloxetine HCl (Duloxetine HCl), 60 MG PO DAILY Scheduled PRN Albuterol Hfa (Ventolin Hfa), 2 PUFFS PO Q6H PRN for Shortness of Breath Alprazolam (Alprazolam), 0.5 MG PO TID PRN for Anxiety Ibuprofen (Motrin), 600 MG PO TID PRN for Pain Tramadol (Ultram), 50 MG PO PRN UD PRN for Pain Trazodone Hcl (Trazodone), 50 MG PO HS PRN for Sleep Allergies Coded Allergies: Acetaminophen (Verified Allergy, Intermediate, GI SYMPTOMS, 05/09/17) Shrimp (Verified Allergy, Intermediate, GI SYMPTOMS, 05/09/17) Vital Signs Date Time Temp Pulse Resp B/P (MAP) Pulse Ox O2 Delivery O2 Flow Rate FiO2 06/19/17 19:32 72 18 132/89 97 06/19/17 18:08 36.9 92 18 156/100 98 Room Air Departure Information Impression Primary Impression: Dental caries Dispostion Home / Self-Care Condition GOOD Referrals No Doctor, Assigned (PCP) Patient Instructions My [facility] Additional Instructions You have been treated in the Emergency Department for Dental Pain. - Regular strength (200 mg/tab) Advil (ibuprofen) 1-2 tabs every 4-6 hours as needed. Do not exceed a dose of 3200 mg per day. Refrain from smoking cigarettes or using chewing tobacco until you have been evaluated by your dentist. Keeping beverages lukewarm and consuming soft foods can decrease your pain. Warm compresses over the affected area may offer some relief. You MUST seek evaluation of your dental pain by a dentist following your visit to the Emergency Department. The Emergency Department is not capable of treating dental issues long-term. You should call your dentist as soon as possible to make an appointment for evaluation of your dental pain. Return to the emergency department if you develop the following symptoms despite treatment course outlined above: fever, intractable pain, increased redness, swelling, or purulent discharge.
[2017-06-19 19:32] VITALS: BP 132/89; PULSE 72; O2SAT 97
== END 2017-06-19 19:33 | disposition home or self-care (01) ==
LOC: C.EDB 17:52 → C.EDD 19:33
DX: K02.9 Dental caries, unspecified (principal); G43.909 Migraine, unspecified, not intractable, without status migrainosus; Z79.899 Other long term (current) drug therapy

== ENCOUNTER 2017-07-29 22:19 | Emergency (ER) | payer OTHER ==
[~2017-07-29] VITALS: Ht 172.7 cm; Wt 73.0 kg
[2017-07-29 22:28] VITALS: TEMP 36.5; Ht 172.7 cm; Wt 73.0 kg
[2017-07-29] MEDS ORDERED: TRAZ100T29 PO (23:21)
[2017-07-29] MEDS ORDERED: VRPSR180 PO (23:21)
[2017-07-29] MEDS ORDERED: DIHY1SPR NAE (23:23)
[2017-07-29] MEDS ORDERED: MOME200A PO (23:23)
[2017-07-29] MEDS ORDERED: ALPR-385 PO (23:23)
[2017-07-29] MEDS ORDERED: MELO15TA4 PO (23:27)
[2017-07-29] MEDS ORDERED: ZOLP10TA6 PO (23:27)
[2017-07-29] MEDS ORDERED: INDSR/60 PO (23:28)
[2017-07-30 00:12] VITALS: BP 117/69; PULSE 91; O2SAT 97
--- NOTE | 2017-07-30 00:38 | EMERGENCY ROOM VISIT NOTE ---
History First contact with patient: 22:34 Chief Complaint: DENTAL PAIN Stated Complaint: HEAD PAIN, TOOTH PAIN Nursing Triage Summary: Dental pain times four days 10/10 on left side. Patient states he has been seen numerous times in ED. Patient with slurred speech. History of Present Illness The patient is a 27 year old male who presents to the Emergency Room with complaints of migraine headaches and dental pain. The patient states that he has a history of migraine headaches and has had migraines frequently for the past 15 years. He reports that he has daily headaches. He states that over the past few weeks, he has had daily migraines and states these are different from previous migraines. The pain is located throughout his head. There are not the worst headaches of his life. He states that typically, if he goes to sleep this migraine goes away. He is concerned because he has been going to sleep and his migraines improved, but does not completely go away. The patient also reports that he is here because he has dental pain. He has been seen by a dentist multiple times and has had several extractions and root canals. He was told that he needs another root canal on one of his front lower teeth. He has difficulty chewing and sensitivity of the teeth. He is taking ibuprofen and occasionally taking oxycodone for pain. The patient also reports that he has been seeing his primary care provider for all of these issues, but is no longer seeing them because he did not feel they were helping him. He has been seeing a dentist about his dental pain. Review of Systems A complete 10 point review of systems was reviewed with the patient with pertinent positives and negatives as per history of present illness. All else were negative. Past Medical/Surgical History Medical Problems: (1) Anxiety Disorder, Unspecified (2) Asthma, Unspecified (3) Chronic Migraine W/O Aura, Not Intractable, W/O Stat Migr (4) Major Depressive Disorder, Single Episode, Unspecified (5) Migraines (6) Tobacco Use Disorder Surgical Problems: (1) History of dental surgery Family History FH: cancer FH: diabetes mellitus FH: heart disease FH: seizures Social History Smoking Status: Former Smoker Alcohol Use: occasionally Drug Use: marijuana Marital Status: single Occupation Status: [employer] Current/Historical Medications Scheduled Alprazolam (Xanax), 1 MG PO TID Duloxetine HCl (Duloxetine HCl), 30 MG PO TID Meloxicam (Meloxicam), 15 MG PO HS Mometasone Furoate-Formoterol (Dulera 200/5 Mcg), 2 PUFFS PO BID Propranolol Hcl (Propranolol ER), 60 MG PO DAILY Trazodone Hcl (Trazodone), 100 MG PO HS Verapamil HCl (Verapamil HCl ER), 180 MG PO UD Scheduled PRN Dihydroergotamine Mesylate (Dihydroergotamine Mesylat), 1 SPRAY ÁNGEL UD PRN for Migraine Zolpidem Tartrate (Zolpidem Tartrate), 10 MG PO HS PRN for Insomnia Physical Exam Vital Signs Date Time Temp Pulse Resp B/P (MAP) Pulse Ox O2 Delivery O2 Flow Rate FiO2 07/30/17 00:12 91 16 117/69 97 Room Air 07/29/17 22:28 36.5 93 16 153/107 96 Room Air Physical Exam VITALS: Vitals are noted on the nurse's note and reviewed by myself. Vital signs stable. GENERAL: This is a 27-year-old male, in no acute distress, nondiaphoretic, well- developed well-nourished. SKIN: The skin was without rashes, erythema, edema, or bruising. HEAD: Normocephalic atraumatic. EARS: External auditory canals clear, tympanic membranes pearly ren without erythema or effusion bilaterally. EYES: Pupils equal round and reactive to light and accommodation. Extraocular movements intact. MOUTH: Mucous membranes moist. Tonsils are not enlarged. Pharynx without erythema or exudate. No evidence of dental abscess. NECK: Supple without nuchal rigidity. No lymphadenopathy. HEART: Regular rate and rhythm without murmurs gallops or rubs. LUNGS: Clear to auscultation bilaterally without wheezes, rales or rhonchi. MUSCULOSKELETAL: Strength 5/5 throughout. NEURO: Patient was alert and oriented to person place and time. Medical Decision & Procedures ER Provider Diagnostic Interpretation: CT HEAD: No acute intracranial process. Calcific debris in the left periorbital - forehead area. Prominent adenoids. Radiologist: Mckenna Berman MD Medical Decision The patient was evaluated as above. He presents with chronic migraines and chronic dental pain. He does state these migraines are different from his typical migraines because they are not going away. He is very concerned about this. CT of the head was ordered and read by statrad with no acute findings. Patient was informed of this finding. At the time of discharge, the patient began to ask what he is supposed to do about the pain. I explained the use of Tylenol and ibuprofen and did offer him Toradol. He states the Toradol will not work for him and declined this. I again explained the options. He asked if there was anything else we can use for pain and I explained that he has been previously he will not receive any narcotics for his dental pain from this facility. The patient did asked multiple times if you could prescribe something heavy and I explained that I was not able to prescribe any narcotics. I recommended follow-up with his dentist and neurologist for his chronic pain issues. Patient did ask to speak to my attending physician. Dr. Chaney is also well aware of the patient and spoke with the patient and reinforced this plan. The patient did voice his displeasure with this treatment plan. He was again encouraged to follow-up with his primary care provider, dentist and neurologist. [place] Drug Monitoring [place] Search Results: patient reviewed within database Medication Reconcilliation Current Medication List: was personally reviewed by me Blood Pressure Screening Patient's blood pressure: Normal blood pressure Impression Primary Impression: Pain, dental Departure Information Dispostion Home / Self-Care Condition GOOD Referrals No Doctor, Assigned (PCP) Patient Instructions My [facility] Additional Instructions The Emergency Department will not prescribe you narcotics for your dental pain. Follow up with your dentist.
--- NOTE | 2017-07-30 06:34 | DIAGNOSTIC IMAGING REPORT ---
HEAD WITHOUT CONTRAST (CT) CT DOSE: 614.27 mGy.cm HISTORY: headache, different from typical migraines TECHNIQUE: Multiaxial CT images of the head were performed without the use of intravenous contrast. A dose lowering technique was utilized adhering to the principles of ALARA. Comparison: None. Findings: The paranasal sinuses and mastoid air cells are clear. The calvarium and skull base are intact. The ventricles and sulci are within normal limits. There is no mass, hematoma, midline shift, or acute infarct. Impression: No acute intracranial abnormality. The above report was generated using voice recognition software. It may contain grammatical, syntax or spelling errors. Electronically signed by: Gonzalez Gonzalez M.D. 07/30/2017 6:33 AM Dictated Date/Time: 07/30/2017 6:31 AM
== END 2017-07-30 00:30 | disposition home or self-care (01) ==
LOC: C.EDB 22:20 → C.EDA 07-30 00:30
DX: K08.89 Other specified disorders of teeth and supporting structures (principal); F41.9 Anxiety disorder, unspecified; F32.9 Major depressive disorder, single episode, unspecified; J45.909 Unspecified asthma, uncomplicated; F17.200 Nicotine dependence, unspecified, uncomplicated; Z87.891 Personal history of nicotine dependence; Z79.899 Other long term (current) drug therapy; Z80.9 Family history of malignant neoplasm, unspecified; Z83.3 Family history of diabetes mellitus; Z82.49 Family history of ischemic heart disease and other diseases of the circulatory system; Z82.0 Family history of epilepsy and other diseases of the nervous system